=== PATIENT | female | born 1945 | race Caucasian/White ===

== ENCOUNTER → 2017-04-22 | Outpatient (CLI) | payer OTHER ==
--- NOTE | 2017-04-22 13:59 | DIAGNOSTIC IMAGING REPORT ---
LEG LENGTH STUDY CLINICAL HISTORY: Right knee pain. FINDINGS: 4 images of the lower extremities from a leg length study are presented. The pelvic view is severely degraded. The skeletal structures are osteopenic. No fracture is identified. The right leg measures 83.8 cm and the left leg measures 83.4 cm as measured from the femoral head to the tibial plafond. Mild arthritic change is present in both knees, right greater than left. IMPRESSION: Leg length measurements as above. Electronically signed by: Jorje Chaidez M.D. 04/22/2017 1:57 PM Dictated Date/Time: 04/22/2017 1:50 PM
--- NOTE | 2017-04-22 14:16 | DIAGNOSTIC IMAGING REPORT ---
RIGHT KNEE INCLUDING BILATERAL AP VIEWS CLINICAL HISTORY: The pain COMPARISON: 10/19/2015 DISCUSSION: There are persistent moderate bilateral osteoarthritic changes slightly more severe in the right. There are advanced degenerative changes within the right patellofemoral joint . There is stable fragmentation of the superior patellar pole IMPRESSION: 1. No acute fractures. 2. Persistent moderate osteoarthritic changes involving the right knee, most pronounced within the patellofemoral joint. Electronically signed by: Naresh Steele M.D. 04/22/2017 2:15 PM Dictated Date/Time: 04/22/2017 2:13 PM
== END | disposition home or self-care (01) ==
LOC: C.RDSM 14:58
PROVIDERS: ATTEND Physician Assistant
DX: R52 Pain, unspecified (principal); M17.11 Unilateral primary osteoarthritis, right knee

== ENCOUNTER 2020-08-30 04:59 | Observation (INO) ==
--- NOTE | 2020-08-24 15:23 | Anesthesiology Consultation ---
Date of Service August 24, 2020 Assessment & Plan (1) Encounter for pre-operative examination: Case was previously scheduled for 06/2020 and seen by URMILA Watson in [place]. Canceled due to covid-19 surge capacity protocol. PCP Clearance: 06/24/20: medically cleared for surgery. COVID Status: As of 08/11 nurse assessment, patient denies travel to endemic area, known exposure/sick contacts, or symptoms of COVID19. Preoperative COVID19 testing completed on 08/23, results negative. Chart Review Chart Review: Acceptable Risk for Surgery History Surgery Operation Date: 08/30/20 07:00 Proposed Procedures p Right Total Knee Arthroplasty - Silvio Mary Zhou MD Height/Weight Height: 5 ft 4 in Weight: 81.647 kg Allergies Allergy/AdvReac Type Severity Reaction Status Date / Time No Known Allergies Allergy Verified 08/11/20 11:17 Medications Home Medications Medication Instructions Recorded Confirmed Last Taken calcium citrate 250 mg PO QAM 06/08/20 08/11/20 Unknown cholecalciferol (vitamin D3) 50 mcg PO QAM 06/08/20 08/11/20 Unknown doxycycline hyclate 100 mg PO HS 06/08/20 08/11/20 Unknown multivitamin 1 cap PO QAM 06/08/20 08/11/20 Unknown omega 3-bwj-czq-fish oil [Fish Oil] 1 cap PO QAM 06/08/20 08/11/20 Unknown cyanocobalamin (vitamin B-12) 5,000 mcg SUBLINGUAL QAM 08/11/20 08/11/20 Unknown Past Medical History Medical History History of breast cancer radiation Obesity Osteoarthritis Past Surgical History Surgical History H/O right mastectomy History of arthroscopy of right knee Right knee scope: 05/16/12: LMA#4 at [facility] [place] History of D&C History of lumpectomy of right breast History of surgery fistulectomy History of tubal ligation Social History Smoking Status: Never smoker Do You Dip or Chew Tobacco: No Hx Alcohol Use: Yes Alcohol type: beer, wine and hard liquor alcohol intake frequency: a few times a week Hx Substance Use: No substance use type: does not use Testing Laboratory Results 08/23/20 WBC: 5.79 H/H: 14.0/41.8 PLATELETS: 291 SODIUM: 139 POTASSIUM: 3.9 CHLORIDE: 105 CO2: 29 BUN: 16 CREATININE: 0.69 GLUCOSE: 91 PT: 10.4 PTT: 25.9 INR: 1.0 Electrocardiogram Date: 06/08/20 Findings: + NSR @ (85bpm)
[2020-08-30] MEDS ORDERED: ceFAZolin 2000MG 2,000 MG/15 ML SYR IV SCH (06:00)
[2020-08-30] MEDS ORDERED: CeleBREX 200 MG CAP PO SCH (06:00)
[2020-08-30] MEDS ORDERED: LACTATED RINGER'S 1,000 ML IV SCH (06:00)
[2020-08-30] MEDS ORDERED: LR 500ML BOLUS, THEN 15ML/HR IV SCH (06:00)
[2020-08-30] MEDS ORDERED: TRANEXAMIC ACID / 0.7% NACL 1,000 MG/100 ML BAG IV SCH (06:00)
[2020-08-30] MEDS ORDERED: BUPIVACAINE 0.5 % 5 MG/1 ML PF 10ML VIAL ONE (06:18)
[2020-08-30] MEDS ORDERED: ROPIVACAINE 0.5% 5 MG/ML 30 ML VIAL ONE (06:19)
[2020-08-30] MEDS ORDERED: TRANEXAMIC ACID 1,000 MG **IV Intra-op IV SCH (06:30)
[2020-08-30] MEDS ORDERED: ORTHO JOINT ANESTHETIC ONE (06:41)
[2020-08-30] MEDS ORDERED: MIDAZOLAM HCL 1 MG/ML 2ML VIAL ONE ×2 (06:42→07:39)
[2020-08-30] MEDS ORDERED: fentaNYL citrate 100 MCG/2 ML VIAL ONE (06:42)
--- NOTE | 2020-08-30 06:55 | History & Physical Report ---
Date of Service August 30, 2020 Assessment & Plan (1) Osteoarthritis: Failed conservative management of right knee OA. Plan right TKA. Patient is aware of the risks and benefits and has previously signed the informed consent, she has no additional questions this morning. The patient is also aware of the risks, is asymptomatic, and tested negative for COVID-19. Present on Admission?: Yes History of Present Illness Chief Complaint: Right knee OA Primary Care Provider: NO PCP Fior is a pleasant 75 year old female with right knee arthritis that has failed conservative treatment who was to have her TKA in mid June 2020, but was cancelled due to the pandemic. She presents today as the OR's are now open to proceed with right TKA. Allergies Allergy/AdvReac Type Severity Reaction Status Date / Time No Known Allergies Allergy Verified 08/11/20 11:17 Home Medications Medication Instructions Recorded Confirmed Type calcium citrate 250 mg PO QAM 06/08/20 08/30/20 History cholecalciferol (vitamin D3) 50 mcg PO QAM 06/08/20 08/30/20 History doxycycline hyclate 100 mg PO HS 06/08/20 08/30/20 History multivitamin 1 cap PO QAM 06/08/20 08/30/20 History omega 0-iyg-tgr-fish oil [Fish Oil] 1 cap PO QAM 06/08/20 08/30/20 History cyanocobalamin (vitamin B-12) 5,000 mcg SUBLINGUAL QAM 08/11/20 08/30/20 History Past Med/Surg History Medical History History of breast cancer radiation Obesity Osteoarthritis Surgical History H/O right mastectomy History of arthroscopy of right knee Right knee scope: 05/16/12: LMA#4 at [facility] [place] History of D&C History of lumpectomy of right breast History of surgery fistulectomy History of tubal ligation Social History Smoking Status: Never smoker Second Hand Exposure: No; Do You Dip or Chew Tobacco: No; Tobacco Cessation Education Requested by Patient: No Hx Alcohol Use: Yes Alcohol type: beer, wine and hard liquor Hx Substance Use: No Preferred Language: Monegasque Communication Ability: Effective Personal Service Workers Required: No Beliefs That Will Affect Care: None Current Living Situation: Spouse Other Information That Helps Us Care for You: No Feels Safe at Home: Yes Safety Concerns: Feels Safe At This Time Assistive Devices: Contacts and Glasses Review of Systems Review of Systems: All systems reviewed & are unremarkable except as noted in HPI & below Physical Exam Constitutional: WD/WN, vitals as above Respiratory: normal respiratory effort; no respiratory distress Cardiovascular: Rate/Rhythm: regular rate and regular rhythm Gastrointestinal (Abdomen): Inspection/Auscultation: abdomen normal to inspection Musculoskeletal: Extremities: + limited ROM of extremities and strength 5/5 throughout Results & Data Results & Data ([facility]) Vital Signs (Past 12 Hours) Vital Signs Temp Pulse Resp BP Pulse Ox 08/30/20 06:10 87 18 166/108 H 98 08/30/20 05:36 37.1 C 92 H 20 164/96 H 97 Diagnostic Findings Multiple views of the right knee show moderate-severe degenerative changes with joint space narrowing, sclerosis, marginal osteophytes, and subcondral cysts. Neutral alignment. Code Status & VTE Plan Code Status VTE Prophylaxis Plan VTE Prophylaxis will be ordered: Yes
[2020-08-30] MEDS ORDERED: LIDOCAINE HCL 2% 2 ML VIAL/AMP(20MG/ML) INFIL ONE (07:27)
[2020-08-30] MEDS ORDERED: ONDANSETRON INJ 2 MG/ML 2 ML VIAL ONE (07:27)
[2020-08-30] MEDS ORDERED: DEXAMETHASONE SOD INJ 4 MG/ML VIAL ONE (07:27)
[2020-08-30] MEDS ORDERED: PROPOFOL IV EMULSION 10 MG/ML 20 ML VIAL IV ONE ×4 (07:27→09:20)
[2020-08-30] MEDS ORDERED: HYDROmorphone INJ 2 MG/ML SYR/VIAL IV PRN (08:19)
[2020-08-30] MEDS ORDERED: ATROPINE SULFATE 0.1 MG/ML 10ML SYR IV PRN (08:19)
[2020-08-30] MEDS ORDERED: ePHEDrine sulfate 50 MG/ML AMP IV PRN (08:19)
[2020-08-30] MEDS ORDERED: fentaNYL citrate 100 MCG/2 ML VIAL IV PRN (08:19)
--- NOTE | 2020-08-30 09:40 | Post Operative Brief Note ---
Immediate Post Op Note v1 Date of Surgery August 30, 2020 Pre & Post Diagnosis Operation Date: 08/30/20 07:00 Pre-Op Diagnosis: Right Knee Ostearthritis Post-Op Diagnosis: Right Knee Ostearthritis I identified the patient and participated in the time-out.: Yes Procedure Operation Date: 08/30/20 07:00 Actual Procedures p Right Total Knee Arthroplasty(Right) - Silvio Zhou MD Surgeon Silvio Zhou MD Cryolite Recovery Operator Milind Murillo MD & URMILA YusufC Estimated Blood Loss 75 Findings Consistent with Post-Op Diagnosis Fluids 1500 cc Specimens Right Knee Contents Anesthesia Type MAC Spinal Regional Complications none
--- NOTE | 2020-08-30 09:40 | Operative Report ---
Post Operative Report Pre & Post Diagnosis Operation Date: 08/30/20 07:00 Pre-Op Diagnosis: Right Knee Ostearthritis Post-Op Diagnosis: Right Knee Ostearthritis I identified the patient and participated in the time-out.: Yes Procedure Operation Date: 08/30/20 07:00 Actual Procedures p Right Total Knee Arthroplasty(Right) - Silvio Zhou MD Surgeon Silvio Zhou MD Straddle Bug Milind Murillo MD & Mark Gilbert PA-C Estimated Blood Loss 75 Findings See Below Examined Under Anesthesia: ROM -- There was lacks 10-15 degrees from full extension to 135 degrees of flexion. Post procedure ROM 0-130 degrees. Ligamentous examination -- revealed stable Tristan, posterior drawer, varus and valgus stress at 10-15 and 30 degrees. Outerbridge Type IV changes of Patellofemoral compartment and medial and Lateral femoral condyle. Marginal osteophytes, extremely large on the patella. Fluids 1500 cc Specimens Right Knee Contents Drains n/a Anesthesia Type MAC Spinal Regional Complications none Indications This is a 75-year-old female who has clinical and radiographic findings consistent with osteoarthritis of the a right knee. I recommended that a right total knee replacement be performed. The patient understands the risks of surgery, which include but not limited to: bleeding, infection, re-operation, damage to nerves and arteries, continued knee pain, knee stiffness, DVT, and . The patient understands all of these instructions and explanations, all of his questions have been satisfactorily addressed and the patient has elected to proceed. Informed consent was signed. Description of Procedure IMPLANTS: 1. Femur: Triathlon #4 Right PS. 2. Tibia: Triathlon #3 Loranger. 3. Insert: Triathlon #3 x 9 mm PS X3 poly. 4. Patella: Triathlon A32 x 10 mm X3 poly. 5. Simplex cement. PROCEDURE: The patient was taken to the Operating Room and placed in the supine position after spinal and adductor canal nerve block was administered. My initials and a multidisciplinary time-out were used to identify the right leg as the correct operative limb. A tourniquet was placed high in the thigh. Prior to the incision, 2 grams of intravenous Ancef were given. The right leg was then prepped and draped in a standard sterile fashion. An Esmarch was used to exsanguinate the leg and the tourniquet was inflated to 250 mmHg. The planned mid-line 20 cm incision was created exposing the extensor mechanism. The medial parapatellar arthrotomy was made and the patella was everted. The patella was addressed first. It was prepared by reaming from 21 mm down to 11 mm. An A32 button was found to fit best. The peg holes were made in the standard fashion. The femur was addressed next and the guide natalia was placed intramedullary. The initial cutting block was placed with 6 degrees of valgus and removing 10 mm for the distal cut. The cut was made and the 4-in-1 cutting block for a size 4 femur was placed. These cuts and the cuts to place the box were made in the standard fashion. Our attention was then drawn to the tibia cut with the external cutting guide, taking 2 mm from the medial low side. There was sufficient extension and flexion gap to fit a 9 mm spacer. A #3 Tibial baseplate fit well. A trial with a 9 mm spacer showed excellent stability in both flexion and extension, with good ligament balance, with good stability and thumbs free tracking of the patella. Range of motion of 0-130 degrees. The tibial baseplate was pinned and the final preparation for the keel and stem was made. All components were removed. The tourniquet was deflated. Hemostasis was obtained. 90 ml of total knee cocktail were injected into the soft tissues and periosteum. A bone plug was placed in the femur and covered with bone wax. After a 10 minute break, the limb was exsanguinated again and the tourniquet was re-inflated. All surfaces were copiously irrigated prior to placement of the components. The femoral component followed by the Tibial baseplate were cemented in place and the 9 mm X3 poly was placed. Next, the patellar button was placed using the same Simplex cement. Again the range of motion, patellar tracking, and stability were unchanged. The extensor mechanism was closed with 1-0 and 0 Vicryl with the knee bent approximately 60 degrees in a standard fashion. The peritenon and deep fascia was closed with 2-0 Vicryl. The subcutaneous layer was closed with 3-0 Vicryl. The skin was closed with Zipline and shield. The limb was cleaned and dried. 4x4 dressing was placed over top followed by ABDs, sterile Webril, and a foot to thigh Oumar bandage. The patient was then transferred to the Recovery Room in stable condition. The sponge and needle counts were correct. POST-OP INSTRUCTIONS: The patient will be WBAT. The patient will be admitted to the hospital. The patient will use the knee immobilizer when ambulating and standing until good quad control is achieved. Labs will be obtained during the stay. DVT prophylaxis will includ aspirin for 6 weeks, TEDs, and mechanical foot pumps. The dressing will be changed prior to their discharge or postop day #2 and covered with a Silverlon dressing, whichever comes first. I attest to the content of the Intraoperative Record and any orders documented therein. Any exceptions are noted below.
[2020-08-30] MEDS ORDERED: ALUMINUM/MAGNESIUM SUSP 30 ML UDC PO PRN (09:57)
[2020-08-30] MEDS ORDERED: diphenhydrAMINE 50 MG/ML VIAL IV PRN (09:57)
[2020-08-30] MEDS ORDERED: NALOXONE HCL 0.4 MG/1 ML VIAL/CARP IV PRN (09:57)
[2020-08-30] MEDS ORDERED: ONDANSETRON INJ 2 MG/ML 2 ML VIAL IV PRN (09:57)
[2020-08-30] MEDS ORDERED: bisacodyL 10 MG SUPP PR PRN (09:57)
[2020-08-30] MEDS ORDERED: METOCLOPRAMIDE HCL INJ 5 MG/ML 2 ML VIAL IV PRN (09:57)
[2020-08-30] MEDS ORDERED: diphenhydrAMINE Capsule 25 MG CAP PO PRN (09:57)
[2020-08-30] MEDS ORDERED: MAGNESIUM HYDROXIDE SUSP 30 ML UDC PO PRN (09:57)
[2020-08-30] MEDS ORDERED: HYDROmorphone INJ 1 MG/ML SYRINGE IV PRN (09:57)
[2020-08-30] MEDS ORDERED: oxyCODONE HCL IR 5 MG TAB (IMMEDIATE RELEASE) PO PRN (09:57)
[2020-08-30] MEDS ORDERED: SODIUM CHLORIDE 0.9% 1000ML 1,000 ML IV SCH (10:00)
--- NOTE | 2020-08-30 10:35 | Anesthesiology Progress Note ---
Date of Service August 30, 2020 Anesthesia Post Procedure Vital Signs Vital Signs: Temp Pulse Pulse Resp BP BP Pulse Ox 08/30/20 10:25 86 16 130/79 94 08/30/20 10:15 36.4 C L 90 20 134/78 96 08/30/20 10:05 84 14 119/78 96 08/30/20 09:55 84 14 115/87 100 08/30/20 09:49 36.1 C L 91 H 12 102/67 99 08/30/20 06:10 87 18 166/108 H 98 08/30/20 05:36 37.1 C 92 H 20 164/96 H 97 Transfer of Care Handoff Completed per policy Notes Mental Status: alert / awake / arousable and participated in evaluation Patient Amnestic to Procedure: Yes Nausea / Vomiting: adequately controlled Pain: adequately controlled Airway Patency, RR, SpO2: stable & adequate BP & HR: stable & adequate Hydration State: stable & adequate Neuraxial Anesthesia: was administered and sensory block is resolving Anesthetic Complications: no major complications apparent
--- NOTE | 2020-08-30 10:55 | XRay Report ---
XR knee RT 1 or 2V routine HISTORY: 75 years-old Female Surgical Post Op right knee total joint arthroplasty COMPARISON: Right knee radiographs 05/10/2020 TECHNIQUE: 2 views of the right knee FINDINGS: Right knee total joint arthroplasty and patella resurfacing. Expected postsurgical soft tissue swelli ng and deep tissue air. No acute fracture, malalignment or expected opaque foreign body. IMPRESSION: Right knee total joint arthroplasty and patella resurfacing with expected postoperative c hanges. ACT 112: Negative or not required by law. The above report was generated using voice recognition software. It may contain grammatical, syntax o r spelling errors. Electronically signed by: Yousuf Solo M.D. 08/30/2020 10:53 AM
[2020-08-30] MEDS ORDERED: PHENYLEPHRINE 100MCG/ML 5ML SYR ONE (10:58)
--- NOTE | 2020-08-30 13:10 | Orthopedic Progress Note ---
Date of Service August 30, 2020 Assessment & Plan (1) Osteoarthritis: POD #0 s/p Right TKA, doing as well as expected. Resume diet. WBAT with immobilizer for 48 hours or when demonstrates good quad control. Use walker. OOB to chair. Continue pain control. Check labs tomorrow. DVT prophylaxis: TEDs 3 weeks, foot pumps while in hospital, ASA 81 mg BID for 6 weeks. PT/OT. D/C planning. Present on Admission?: Yes Admission and Anticipated Discharge Date Admission Date: August 30, 2020 Subjective Feeling well Physical Exam Physical Exam: RLE: Dressing clean, dry, intact. Results & Data ([facility]) Vital Signs (Past 12 Hours) Vital Signs Temp Pulse Pulse Resp BP BP Pulse Ox 08/30/20 12:59 36.8 C 105 H 18 130/79 94 08/30/20 12:00 36.4 C L 91 H 18 125/81 94 08/30/20 11:31 36.3 C L 92 H 18 130/82 94 08/30/20 11:00 36.9 C 90 18 130/84 96 08/30/20 10:35 83 16 120/82 95 08/30/20 10:25 86 16 130/79 94 08/30/20 10:15 36.4 C L 90 20 134/78 96 08/30/20 10:05 84 14 119/78 96 08/30/20 09:55 84 14 115/87 100 08/30/20 09:49 36.1 C L 91 H 12 102/67 99 08/30/20 06:10 87 18 166/108 H 98 08/30/20 05:36 37.1 C 92 H 20 164/96 H 97 Diagnostic Findings RADIOGRAPHS: AP & lateral Right knee show expected findings following cemented Right TKA.
[2020-08-30] MEDS: ceFAZolin 2000MG 2,000 MG/15 ML SYR IV SCH ×2 (14:57→21:56)
[2020-08-30] MEDS: ACETAMINOPHEN 500 MG TAB PO SCH ×2 (14:58→20:16)
[2020-08-30] MEDS: Scopolamine CHECK PATCH PLACEMENT SCH ×2 (16:54→23:42)
[2020-08-30] MEDS: ASCORBIC ACID 500 MG TAB PO SCH (17:28)
[2020-08-30] MEDS: FERROUS GLUCONATE 324 MG TAB PO SCH (17:28)
[2020-08-30] MEDS: DOCUSATE SODIUM 100 MG CAP PO SCH (20:16)
[2020-08-30] MEDS ORDERED: SENNA 8.6 MG TAB PO SCH (21:00)
[2020-08-30] MEDS ORDERED: DOXYCYCLINE HYCLATE 100 MG CAP PO SCH (21:00)
[2020-08-31] MEDS: ACETAMINOPHEN 500 MG TAB PO SCH ×2 (05:05→13:10)
[2020-08-31 06:09] LABS: Hematocrit (blood only) 32.7 % (37-47); Hemoglobin 11.3 g/dL (12.0-16.0); Mean Corpuscular Hemoglobin 28.8 pg (25-34); Mean Corpuscular Hgb Conc 34.6 g/dL (32-36); Mean Corpuscular Volume 83.4 fL (80-100); Mean Platelet Volume 10.2 fL (7.4-10.4); Platelet Count 219 K/uL (130-400); RDW Coefficient of Variation 14.3 % (11.5-14.5); RDW Standard Deviation 43.2 fL (36.4-46.3); Red Blood Count 3.92 M/uL (4.2-5.4)
[2020-08-31 06:47] LABS: BUN Creatinine Ratio 22.6 (10-20); Calcium 8.9 mg/dl (8.5-10.1); Creatinine Clr Calc Pharmacy 66.7 ml/min; Est GFR (African American) 87.4; Est GFR (Non-African American) 75.4; Potassium 3.8 mmol/L (3.5-5.1)
[2020-08-31] MEDS: Scopolamine CHECK PATCH PLACEMENT SCH (07:16)
[2020-08-31] MEDS: ASCORBIC ACID 500 MG TAB PO SCH (07:16)
[2020-08-31] MEDS: FERROUS GLUCONATE 324 MG TAB PO SCH (07:16)
--- NOTE | 2020-08-31 08:07 | Anesthesiology Progress Note ---
Date of Service August 31, 2020 Anesthesia Post Procedure Vital Signs Vital Signs: Temp Pulse Pulse Resp BP Pulse Ox 08/31/20 07:33 36.4 C L 64 16 117/73 97 08/31/20 03:46 36.7 C 71 16 97/58 L 94 08/30/20 22:17 36.9 C 95 H 18 142/84 H 96 08/30/20 19:25 36.9 C 92 H 16 127/82 92 08/30/20 14:02 36.4 C L 99 H 18 135/84 94 08/30/20 12:59 36.8 C 105 H 18 130/79 94 08/30/20 12:00 36.4 C L 91 H 18 125/81 94 08/30/20 11:31 36.3 C L 92 H 18 130/82 94 08/30/20 11:00 36.9 C 90 18 130/84 96 08/30/20 10:35 83 16 120/82 95 08/30/20 10:25 86 16 130/79 94 08/30/20 10:15 36.4 C L 90 20 134/78 96 08/30/20 10:05 84 14 119/78 96 08/30/20 09:55 84 14 115/87 100 08/30/20 09:49 36.1 C L 91 H 12 102/67 99 Notes Mental Status: alert / awake / arousable and participated in evaluation Patient Amnestic to Procedure: Yes Nausea / Vomiting: adequately controlled Pain: adequately controlled Airway Patency, RR, SpO2: stable & adequate Hydration State: stable & adequate Neuraxial Anesthesia: was administered and sensory block is resolving Anesthetic Complications: no major complications apparent and Pt Satisfied with anesthetic care
--- NOTE | 2020-08-31 08:48 | Operative Report ---
Post Operative Report Pre & Post Diagnosis Operation Date: 08/30/20 07:00 Pre-Op Diagnosis: Right Knee Ostearthritis Post-Op Diagnosis: Right Knee Ostearthritis I identified the patient and participated in the time-out.: Yes Procedure Operation Date: 08/30/20 07:00 Actual Procedures p Right Total Knee Arthroplasty(Right) - Silvio Zhou MD Surgeon Silvio Zhou MD Hotbed Transfer Operator Milind Murillo MD & Mark Gilbert PA-C Estimated Blood Loss 75 Findings Consistent with Post-Op Diagnosis Specimens bone cuts Anesthesia Type Spinal Complications none Disposition Accompanied Patient To Recovery: Yes Disposition: Recovery Room Description of Procedure As per 's note I assisted in prepping and draping, instruments handling, certain parts of the procedure and wound closure. I attest to the content of the Intraoperative Record and any orders documented therein. Any exceptions are noted below.
[2020-08-31] MEDS ORDERED: CHOLECALCIFEROL 1,000 UNITS 25 MCG TAB PO SCH (09:00)
[2020-08-31] MEDS ORDERED: ASPIRIN 81 MG ECTAB PO SCH (09:00)
[2020-08-31] MEDS ORDERED: NON-FORMULARY MEDICATION (Multivitamin Capsule) PO SCH (09:00)
[2020-08-31] MEDS ORDERED: CYANOCOBALAMIN (VITAMIN B-12) 2,500 MCG TAB.SUBL SL SCH (09:00)
[2020-08-31] MEDS ORDERED: MULTIVITAMIN TAB PO SCH (09:00)
[2020-08-31] MEDS ORDERED: CALCIUM 600MG + VIT D 400 IU TAB PO SCH (09:00)
--- NOTE | 2020-08-31 09:09 | Orthopedic Progress Note ---
Date of Service August 31, 2020 Assessment & Plan (1) Osteoarthritis: POD #1 s/p Right TKA, doing as well as expected. Keep dressing in place until 2-week postoperative follow-up visit Resume diet. WBAT with immobilizer for 48 hours or when demonstrates good quad control. Use walker. OOB to chair. Continue pain control with p.o. medication. H&H are stable DVT prophylaxis: TEDs 3 weeks, foot pumps while in hospital, ASA 81 mg BID for 6 weeks. PT/OT. Patient is planning on discharge later today with in-home therapy. Follow-up with Delfina Gilbert PA-C on September 14, 2020 at 11:15 AM With questions contact our clinic at [phone] I, Dr. Zhou, saw and examined and agree with my PA's above findings and plan of care we discussed. Admission and Anticipated Discharge Date Admission Date: August 30, 2020 Subjective This 75-year-old female was seen this morning day 1 status post right total knee arthroplasty. Patient states she is doing very well. She states her pain is well controlled with p.o. pain medication. She has been able to transition from her bed to the chair and from the chair to the bathroom with walker assistance. Patient states she is ready to be discharged later today and is set up with home health for the first 2 weeks postoperatively. Currently she denies chest pain, shortness of breath, fever, chills, sweats, lethargy or numbness or tingling in her right lower extremity. Review of Systems Review of Systems: All systems reviewed & are unremarkable except as noted in Subjective Physical Exam Physical Exam: Right knee; dressings were removed from the patient's right lower extremity. Her incision site is intact with Zipper line and shield in place. There is some mild edema, but no erythema, ecchymosis, warmth or palpable deformity. There is no fluctuance or drainage. Patient is able to perform straight leg raise test. Active range of motion of her knee is from 0 to 80 degrees causes no pain. Patient is able to dorsi and plantarflex her foot actively without difficulty. Her calf is soft and supple nontender to palpation. Peripheral pulses are 2+. Capillary refill is less than 2 seconds. She is neurovascularly intact in the right lower extremity. After examination A Silverlon dressing was placed over the incision site. Results & Data ([facility]) Vital Signs (Past 12 Hours) Vital Signs Temp Pulse Resp BP Pulse Ox 08/31/20 07:33 36.4 C L 64 16 117/73 97 08/31/20 03:46 36.7 C 71 16 97/58 L 94 08/30/20 22:17 36.9 C 95 H 18 142/84 H 96 Laboratory Results 08/31/20 08/31/20 Range/Units 05:42 05:42 WBC 11.30 H (4.8-10.8) K/uL RBC 3.92 L (4.2-5.4) M/uL Hgb 11.3 L (12.0-16.0) g/dL Hct 32.7 L (37-47) % MCV 83.4 (80-100) fL MCH 28.8 (25-34) pg MCHC 34.6 (32-36) g/dL RDW Std Deviation 43.2 (36.4-46.3) fL RDW Coeff of Gus 14.3 (11.5-14.5) % Plt Count 219 (130-400) K/uL MPV 10.2 (7.4-10.4) fL Sodium 140 (136-145) mmol/L Potassium 3.8 (3.5-5.1) mmol/L Chloride 108 H (98-107) mmol/L Carbon Dioxide 25 (21-32) mmol/L Anion Gap 7.0 (3-11) BUN 18 (7-18) mg/dl Creatinine 0.78 (0.6-1.2) mg/dl Est Cr Clr Drug Dosing 66.7 ml/min Est GFR ( Amer) 87.4 Est GFR (Non-Af Amer) 75.4 BUN/Creatinine Ratio 22.6 H (10-20) Glucose 97 (70-99) mg/dl Calcium 8.9 (8.5-10.1) mg/dl
[2020-08-31] MEDS: DOCUSATE SODIUM 100 MG CAP PO SCH (10:21)
--- NOTE | 2020-08-31 16:26 | Discharge Summary ---
Date of Service August 31, 2020 Principal Diagnosis Right knee osteoarthritis Discharge Data Allergies Allergy/AdvReac Type Severity Reaction Status Date / Time No Known Allergies Allergy Verified 08/11/20 11:17 Consultations 08/30/20 09:57 Consult Case Management - Discharge Planning Routine Procedures Performed Operation Date: 08/30/20 07:00 Actual Procedures p Right Total Knee Arthroplasty(Right) - Silvio Zhou MD Ordered Studies 08/30/20 05:00 US - OR guided needle placemen Routine Hospital Course (1) Osteoarthritis of right knee: 75-year-old female underwent a right total knee arthroplasty on 08/30/[address] Zhou. She was then admitted to [facility] under observation. She tolerated a spinal anesthetic surgery was without complications she received 24-hour postop Ancef antibiotic. Her stay was uneventful. Her pain was controlled throughout the evening into today. She tolerated p.o. narcotics with good pain control. She tolerated a regular diet and p.o. fluids. She participated in occupational and physical therapy. She was able to ambulate weightbearing as tolerated right lower extremity with immobilizer and a walker. She was able to perform a straight leg raise. Her incision was checked on postop day 1 and switched to a Silverlon waterproof dressing. She displayed no signs or symptoms of a DVT or infection. Her vital signs and postop day 1 blood work were stable and within normal limits. While in-house DVT prophylaxis consisted of bilateral AV impulse boots and left knee- high VINCENT hose, and 81mg ASA. She was deemed stable for discharge on postop day 1 after a.m. OT PT. She was able to void without complaint and denied any abdominal pain. She denied chest pain shortness of breath nausea vomiting lightheadedness dizziness. Patient will be discharged with DVT prophylaxis consisting of bilateral lower extremity knee-high VINCENT hose and aspirin 81 mg twice a day for 6 weeks. She will continue with waterproof Silverlon dressing for 2 weeks until seen in the office. She will receive home health physical therapy. Weightbearing as tolerated right lower extremity with a walker. The knee immobilizer only needs to be used for another 24 hours if needed or until good quad control. Pain control will consist of [id number] Tylenol and oxycodone. The oxycodone prescription was sent to her pharmacy. The PDMP was checked there were no issues. She will also be sent home on vitamin C and iron twice a day for total of 2 weeks. As previously mentioned aspirin 81 mg twice a day for 6 weeks. She is scheduled to follow-up in the office on 09 14 at 11:15 AM. At that appointment we will discuss starting outpatient PT based on how she is doing and assess ability to physical therapy. She was advised however to call the office or go to the emergency room in the mean if she has any further problems questions or concerns. Please see below discharge plan for further involved details. Total Time Total Time Spent Total Time Spent (In Minutes): 20min Discharge Plan Discharge Items Patient Disposition: Home - Home Health Services Reason For Visit: Right Knee Ostearthritis Discharge Diagnosis: Right knee Osteoarthritis Activity: Per Instructions section Weightbearing: Right weightbearing Non-emergency contact: Surgeon Call non-emergency contact if: you have any medication questions, your temperature is above 101, your wound has increased redness, your wound has increased drainage and your wound pain has increased Follow-up/Referrals: Karen Gilbert P.A.-C. [Physician [employer] Operator] - 09/14/20 11:15 am PCPKARIN [Physician] - Diet: Regular Addtl Attending Provider Instructions: Post-operative Instructions Pain Expect to be in a fair amount of pain after surgery. Remember, our goal is not to eliminate your pain, but to make it tolerable. It is a good idea to stay ahead of your pain by taking the medications you were prescribed once you get home. Typically, the pain starts improving 3-7 days after surgery. You should start weaning off the narcotic pain medication (oxycodone) as soon as your pain improves. Please call our office if your pain is not adequately controlled. You can take tylenol 1000mg every 8hrs for mild to moderate pain. Ice Ice your operative site at least 5 times a day for 15-30 minutes at a time. Make sure you have a thin cloth between the ice or cooling unit and your skin to prevent manning bite. This is especially important if you received a nerve block. Continue icing your operative site for the first 5-7 days after surgery, then as needed. Diet/Nausea/Vomiting Start by drinking clear liquids and eating crackers. If you can tolerate this, then you may resume your normal diet. If you feel nauseated or vomit, take Zofran/ondansetron (if prescribed). Please call our office if you have intractable nausea or vomiting, or, if after hours, you may go to the Emergency Room for help. Constipation Constipation is a common side effect of narcotic pain medication. If you have not had a bowel movement within 2 days after surgery, we recommend purchasing an over the counter laxative such as Milk of Magnesia, Dulcolax, or Miralax from a local pharmacy, and taking it as instructed. Call our clinic if any questions. Weight bearing and Range of Motion. Weightbearing as tolerated with walker. No restrictions with range of motion. *KNEE IMMOBILIZER x 48hrs AFTER SURGERY WHILE AMBULATING AND THEN CAN STOP (CONTINUE IF YOU DO NOT HAVE GOOD QUAD CONTROL)* Physical therapy Initially you will start with home health physical therapy. At our first visit with at our office we will provide you with script for outpatient physical therapy. Wound care and showering We will inspect your wound at your first post-operative visit, and may do a dressing change at that time. Most patients will be in a water-proof dressing that is removed 14 days after surgery. It is normal to see some dried blood on the dressing. Do not remove your dressing, paper strips or sutures yourself unless you are given permission. Showering is allowed the day after surgery. Do not scrub or remove any dressings. The wound should not be submerged underwater (i.e. in a bathtub or pool) until 4 weeks after surgery VINCENT stockings If you were given white stockings, these are to be worn at all times except to shower and sleep (on both legs) for the first 2 weeks after surgery. We will discuss removal at your first follow-up appointment. Driving You may not drive while taking narcotic pain medication. We will discuss return to driving at your first follow-up appointment. Travel Avoid long distance travel (greater than 1 hour) in airplanes and cars for the first 6 weeks after surgery if possible. If you must travel, please let us know so we can discuss additional measures to prevent blood clots. Follow-up You should have a follow-up appointment already scheduled for 2 weeks after surgery. If not, please contact our office to make this appointment before you leave the hospital. When to call the office [phone] It is normal to have swelling and bruising in the limb that was operated on. This will improve with time. It is also normal to have fevers for the first 2 days after surgery. Reasons you should call your doctor include: Uncontrolled pain; Nausea, vomiting, or constipation that does not improve with medication; Fevers over 101.5, chills, sweats; Drainage or bleeding from the wound; Foul odor; Spreading areas of redness; Any other concerns. NEW MEDICATIONS: new medications will be sent to your pharmacy: oxycodone, iron, vit c, tylenol, aspirin. Pending Studies at Discharge: No Stand-Alone Forms: My [facility], Smoking Cessation Medications and DC Order Prescriptions: New aspirin 81 mg Tablet,Delayed Release (Dr/Ec) 81 mg PO BID 42 Days Qty: 84 RF: 0 acetaminophen 500 mg Tablet 1,000 mg PO Q8 Qty: 60 RF: 0 ascorbic acid (vitamin C) [Vitamin C] 500 mg Tablet 500 mg PO BIDM 14 Days Qty: 28 RF: 0 oxycodone 5 mg Tablet 5 - 10 mg PO Q4H PRN (Reason: pain) Qty: 30 RF: 0 ferrous gluconate 324 mg (38 mg iron) Tablet 324 mg PO BIDM 14 Days Qty: 28 RF: 0 Continued cyanocobalamin (vitamin B-12) 5,000 mcg Tablet, Sublingual 5,000 mcg SUBLINGUAL QAM RF: 0 multivitamin Capsule 1 cap PO QAM RF: 0 doxycycline hyclate 100 mg Tablet 100 mg PO HS RF: 0 calcium citrate 250 mg calcium Tablet 250 mg PO QAM RF: 0 cholecalciferol (vitamin D3) 50 mcg (2,000 unit) Capsule 50 mcg PO QAM RF: 0 omega 4-uam-rgx-fish oil [Fish Oil] 300-1,000 mg Capsule 1 cap PO QAM RF: 0 Discharge Orders: Discharge Order (Routine); Ordered 08/31/20 Ordered By: Karen Dunham/Other Patient Handouts: After Knee Replacement: Back at Home, Knee Replace First Month, Home Safety After Joint Surgery, Knee Replacement Knee Health, Knee Replace After Hospital, Replacement Knee Home Exercise Admission Data Admit Date/Time: 08/30/20 09:57 Attending Provider: Silvio Zhou Admit Provider: Silvio Zhou Other Interventions: Discharge Summary Assessment (RN) Last Done: 08/31/20 13:22
== END 2020-08-31 14:10 | disposition home health service (06) ==
LOC: 3E 04:59 → ASU 04:59